=== PATIENT | female | born 1975 | race Caucasian/White ===

== ENCOUNTER → 2019-06-28 | Outpatient (CLI) | payer OTHER ==
--- NOTE | 2019-06-28 14:37 | RADIOLOGY REPORT (SQ) ---
EXAM DESCRIPTION: MRI CERVICAL SPINE WITHOUT COMPLETED DATE/TIME: 06/28/2019 9:04 am REASON FOR STUDY: M54.2 CERVICALGIA M54.2 CERVICALGIA COMPARISON: None. TECHNIQUE: Sagittal and Axial imaging includes T1, T2, STIR and gradient echo sequences. LIMITATIONS: None. FINDINGS: ALIGNMENT: Straightening of cervical curvature due to muscle spasm VERTEBRAE: Intact. BONE MARROW: Normal. No marrow replacement or reactive changes. DISCS: Mild decreased T2 weighted intervertebral disc signal. Minimal posterior disc bulging at C5-6 and C6-7 without significant central or foraminal stenosis HARDWARE: None in the spine. CORD AND BASE OF BRAIN: Normal in size and signal intensity. SOFT TISSUES: No soft tissue masses. C1-C2: No significant spinal stenosis. C2-C3: No significant spinal stenosis or exit foraminal stenosis. C3-C4: No significant spinal stenosis or exit foraminal stenosis. C4-C5: No significant spinal stenosis or exit foraminal stenosis. C5-C6: Mild posterior disc bulging. No significant spinal stenosis or exit foraminal stenosis. C6-C7: Mild posterior disc bulging. No significant spinal stenosis or exit foraminal stenosis. C7-T1: No significant spinal stenosis or exit foraminal stenosis. UPPER THORACIC: Incompletely imaged. No significant spinal stenosis or exit foraminal stenosis. OTHER: No other significant finding. IMPRESSION: No significant central or foraminal encroachment. TECHNICAL DOCUMENTATION: JOB ID: [id number] [facility]- All Rights Reserved Reading location - IP/workstation name: [email or web address]
== END ==
LOC: RAD 08:05
PROVIDERS: ATTEND Psychiatry & Neurology Neurology
DX: M54.2 Cervicalgia (principal)
CPT/HCPCS: 72141